=== PATIENT | male | born 1955 | race Two or more races ===

== ENCOUNTER 2022-10-14 17:16 | Inpatient (IN) | payer OTHER ==
[~2022-10-14] VITALS: Ht 167.6 cm; Wt 92.5 kg
--- NOTE | 2022-10-14 17:45 | NUR ---
PT [facility] FROM [facility], PER REPORT FROM FACILITY, PATIENT BEEN HAVING PROGRESSIVE WEEKNESS X 1 WEEK NOW AND TODAY WAS NOTED W/ LOW O2 SATURATION. PT VERBALLY RESPONSIVE. STATES "ANXIOUS" GOWNED AND PLACED ON MONITOR. AWAITING MD BAIG.
--- NOTE | 2022-10-14 17:56 | NUR ---
DR QUINTANA AT BEDSIDE FOR EVAL.
--- NOTE | 2022-10-14 18:03 | NUR ---
IV LINE STARTED BLOOD DRAWN AND SENT TO LAB
[2022-10-14 18:23] LABS: BASOPHILS % (AUTO) 0.3 % (0.0-2.0); EOSINOPHILS % (AUTO) 0.9 % (0.0-6.0); HEMATOCRIT 39 % (39-51); HEMOGLOBIN 12.2 g/dL (13.5-17.5); LYMPHOCYTES # (AUTO) 0.7 K/uL (0.8-4.8); LYMPHOCYTES % (AUTO) 10.5 % (20.0-44.0); MEAN CORPUSCULAR HGB CONC 32 g/dl (31.0-36.0); MEAN CORPUSCULAR VOLUME 92 fL (80-96); MONOCYTES # (AUTO) 0.7 K/uL (0.1-1.30); MONOCYTES % (AUTO) 11.5 % (2.0-12.0); NEUTROPHILS # (AUTO) 4.9 K/uL (1.8-8.9); NEUTROPHILS % (AUTO) 76.8 % (43.0-81.0); PLATELET COUNT (AUTO) 144 K/uL (150-450); RED BLOOD CELL COUNT(AUTO) 4.22 MIL/uL (4.5-6.0); WHITE BLOOD COUNT (AUTO) 6.3 K/uL (4.3-11.0)
[2022-10-14 19:00] LABS: ALANINE AMINOTRANSFERASE 40 U/L (12-78); ALBUMIN 3.3 g/dL (3.4-5.0); ALKALINE PHOSPHATASE 106 U/L (46-116); ASPARTATE AMINOTRANSFERASE 39 U/L (15-37); BILIRUBIN,DIRECT 0.4 mg/dL (0.0-0.2); BILIRUBIN,TOTAL 0.9 mg/dL (0.2-1.0); CALCIUM, SERUM 9.7 mg/dL (8.5-10.1); CHLORIDE 96 mmol/L (98-107); CREATININE 1.2 mg/dL (0.6-1.3); GLUCOSE 150 mg/dL (74-106); POTASSIUM 4.3 mmol/L (3.5-5.1); SODIUM SERUM 140 mmol/L (136-145); TOTAL PROTEIN, SERUM 6.6 g/dL (6.4-8.2); UREA NITROGEN, BLOOD 29 mg/dL (7-18)
[2022-10-14 19:17] LABS: CARBON DIOXIDE 46 mmol/L (21-32)
--- NOTE | 2022-10-14 19:17 | NUR ---
CO2 46
[2022-10-14] MEDS ORDERED: FUROSEMIDE 40 MG/4 ML VIAL ONE (19:57)
[2022-10-14] MEDS ORDERED: FUROSEMIDE 40 MG/4 ML VIAL IV ONE (20:00)
--- NOTE | 2022-10-14 20:03 | NUR ---
RT AT BEDSIDE FOR ABG
--- NOTE | 2022-10-14 20:10 | NUR ---
RT pt refused ABG. dr calabrese notified
--- NOTE | 2022-10-14 20:14 | NUR ---
COVID SWAB DONE
--- NOTE | 2022-10-14 20:27 | NUR ---
DR. ABEBE ON THE PHONE WITH DR. QUINTANA
--- NOTE | 2022-10-14 20:45 | NUR ---
RT pt placed on bipap post vbg results. settings ST 10/31 R18 36%. tolerating well. ambu bag at bedside.
--- NOTE | 2022-10-14 21:08 | NUR ---
VB COLLECTED AND SENT TO RT
--- NOTE | 2022-10-14 21:09 | NUR ---
LAB AT BEDSIDE FOR REPEAT TROPONIN
[2022-10-14 21:10] LABS: SITE, VBG Other; VBG MetHb 0.3 %; VENT MODE, VBG 5LNC
--- NOTE | 2022-10-14 21:20 | NUR ---
CALLED [facility]. AWAITING A CALL BACK FROM DR. ABEBE.
--- NOTE | 2022-10-14 21:23 | NUR ---
DR QUINTANA ON PHONE WITH DR GONSALEZ WITH [facility]
--- NOTE | 2022-10-14 21:40 | NUR ---
PT VOIDED 200 ML YELLOW FOUL SMELLING URINE
--- NOTE | 2022-10-14 21:54 | NUR ---
CALLED ICU FOR REPORT, REQUESTED FOR CALLBACK.
--- NOTE | 2022-10-14 22:05 | NUR ---
CALLED ICU AND SPOKE WITH LINDA KHAN ER REPORT GIVEN.
[2022-10-14] MEDS ORDERED: DEXTROSE 50%-WATER 50 ML DISP.SYRIN IV PRN (22:30)
[2022-10-14] MEDS ORDERED: methylPREDNISolone SOD SUCC 125 MG/2ML VIAL IV ONE (22:30)
[2022-10-14] MEDS ORDERED: Z GUARD REMEDY 4 OZ OINT TP PRN (22:30)
[2022-10-14] MEDS ORDERED: ONDANSETRON HCL/PF 4 MG/2 ML VIAL IVP PRN (22:30)
[2022-10-14] MEDS ORDERED: ACETAMINOPHEN 325 MG TABLET PO PRN (22:30)
[2022-10-14] MEDS ORDERED: ZOLPIDEM TARTRATE 5 MG TABLET PO PRN (22:30)
[2022-10-14] MEDS ORDERED: MAG HYDROX/AL HYDROX/SIMETH 30 ML UDC PO PRN (22:30)
[2022-10-14] MEDS ORDERED: MAGNESIUM HYDROXIDE 30 ML UDC PO PRN (22:30)
[2022-10-14] MEDS ORDERED: CEFEPIME 1 GM in IV D5W 50 ML IV SCH (22:36)
--- NOTE | 2022-10-14 22:49 | NUR ---
PT TRANSPORTED TO ICU RM 257 VIA ACLS PROTOCOL. PT REMAINED STABLE AND IN NO ACUTE RESPIRATORY DISTRESS. RECEIVED BY LINDA KHAN.
[2022-10-14 23:00] VITALS: BP 94/60
--- NOTE | 2022-10-14 23:00 | NUR ---
Received patient from ED AA/OX4.Dx: COPD and CHF Exacerbation.Situated to bed and made comfortable.Afib controlled. VSS.RT place patient on BIPAP 12/5,RATE 18,FIO2 36%.Saturation 90%-91%.No acute respiratory distress noted.Oriented to unit and Plan of care explained to patient verbalized understanding.Safety measures implemented.Bed alarm on and call light at bedside within easy reach.Continue monitoring.
[2022-10-14 23:03] VITALS: BP 94/60
[2022-10-14] MEDS ORDERED: MEROPENEM 1 G VIAL IV ONE (23:10)
[2022-10-14 23:16] LABS: ABG OXYGEN SATURATION 88.7 % (92.0-98.5); ABG PCO2 97.7 mmHg (35.0-45.0); ABG PO2 58.1 mmHg (75.0-100.0); AaDO2 85.3 mmHg; COHb 1.2 % (0.5-1.5); MetHb 0.2 % (0.0-1.5); O2Hb 87.5 % (94.0-97.0); SITE, ABG Left Radial
--- NOTE | 2022-10-14 23:17 | NUR ---
ABG DONE RN NOTIFIE
[2022-10-14] MEDS: IV NS 0.9% 250 ML IV PRN (23:19)
[2022-10-14 23:30] VITALS: BP 79/50
[2022-10-15] VITALS (31 sets, daily range): BP systolic 90–153; BP diastolic 20–79
--- NOTE | 2022-10-15 | NUR ---
ABG'S done at 2300 called to AMANUEL Robison no new orders received.Just keep the same bipap settings.
[2022-10-15] MEDS: ALBUTEROL FS 2.5 MG/3 ML VIAL.NEB NEB SCH ×4 (01:07→19:20)
[2022-10-15] MEDS ORDERED: IPRATROPIUM NEB FS 0.5 MG/2.5 ML AMPUL.NEB NEB ONE (01:30)
--- NOTE | 2022-10-15 04:00 | NUR ---
Patient getting agitated wants to get up.Assisted to bedside chair well tolerated.Stayed there x 2 hrs then back to bed.Refused AM CXR to be taken but sgreed to have am labs drawn.
[2022-10-15 04:49] LABS: BASOPHILS % (AUTO) 0.3 % (0.0-2.0); EOSINOPHILS % (AUTO) 0.9 % (0.0-6.0); HEMATOCRIT 39 % (39-51); HEMOGLOBIN 12.6 g/dL (13.5-17.5); LYMPHOCYTES # (AUTO) 0.9 K/uL (0.8-4.8); LYMPHOCYTES % (AUTO) 12.9 % (20.0-44.0); MEAN CORPUSCULAR HGB CONC 32 g/dl (31.0-36.0); MEAN CORPUSCULAR VOLUME 91 fL (80-96); MONOCYTES # (AUTO) 0.7 K/uL (0.1-1.30); MONOCYTES % (AUTO) 9.8 % (2.0-12.0); NEUTROPHILS # (AUTO) 5.3 K/uL (1.8-8.9); NEUTROPHILS % (AUTO) 76.1 % (43.0-81.0); PLATELET COUNT (AUTO) 137 K/uL (150-450); RED BLOOD CELL COUNT(AUTO) 4.27 MIL/uL (4.5-6.0)
[2022-10-15 05:09] LABS: ABG BASE EXCESS 14.8 mmol/L; ABG OXYGEN SATURATION 93.3 % (92.0-98.5); ABG PCO2 78.7 mmHg (35.0-45.0); ABG PH 7.364 (7.350-7.450); ABG PO2 68.7 mmHg (75.0-100.0); MetHb 0.2 % (0.0-1.5); O2Hb 92.2 % (94.0-97.0); SITE, ABG Left Radial
[2022-10-15 05:17] LABS: CALCIUM, SERUM 10.4 mg/dL (8.5-10.1); CREATININE 1.1 mg/dL (0.6-1.3); PHOSPHORUS 4.1 mg/dL (2.5-4.9); POTASSIUM 4.1 mmol/L (3.5-5.1)
[2022-10-15 05:21] LABS: THYROID STIMULATING HORMONE 2.442 uIU/mL (0.358-3.74)
--- NOTE | 2022-10-15 05:31 | NUR ---
@3280 [facility] DONE. CLAY BURNER NOTIFIED WITH THE RESULT
--- NOTE | 2022-10-15 06:40 | NUR ---
Patient resting vs remains stable.Tolerating Bipap.No acute repiratory distress noted. Afib controlled.Adequate urine output.No bm noted.Safety precaution maintained.
[2022-10-15] MEDS: methylPREDNISolone SOD SUCC 40 MG/ML VIAL IV SCH ×3 (07:13→20:25)
[2022-10-15] MEDS: BLOOD SUGAR DIAGNOSTIC 1 EACH STRIP IN SCH ×4 (07:26→21:04)
--- NOTE | 2022-10-15 07:47 | NUR ---
ICU/RN PT PLACED ON 4L O2 NC BY RT TONY. O2 SAT 91%. BLOOD SUGAR 54. PT EATING BREAKFAST AT THIS TIME.
[2022-10-15] MEDS: PANTOPRAZOLE 40 MG VIAL IV SCH (08:04)
[2022-10-15] MEDS: ASPIRIN 81 MG TAB.CHEW PO SCH (08:04)
--- NOTE | 2022-10-15 08:25 | NUR ---
ICU/RN NOTIFIED BY PHARMACY THAT STICK ROLLER CHARGE NURSE OVERRIDE MERREM LAST NIGHT. NO ORDER AVAILABLE FOR MERREM. MAXIPIME RECORDED TO HAVE BEEN ADMINISTERED AT 2316 IN [facility]. IVPB WITH ATTACHED VIAL IN PT'S ROOM. IVPB LABEL MADE BY STICK ROLLER STATES "MAXIPIME 1GM IN D5W 50ML [id number]". ATTACHED VIAL STATES "MEROPENEM FOR INJECTION, ASSISTED 1GM PER VIAL". PHARMACY NOTIFIED, ORDERED TO LEAVE IVPB WITH ATTACHED VIAL IN ROOM FOR NOW. CHARGE NURSE WANDA NOTIFIED.
[2022-10-15] MEDS ORDERED: FUROSEMIDE 40 MG/4 ML VIAL IV SCH (09:00)
[2022-10-15] MEDS ORDERED: METOPROLOL TARTRATE 25 MG TABLET PO SCH (09:00)
[2022-10-15] MEDS ORDERED: CEFEPIME 2 GM in IV D5W 100 ML IV ONE (10:00)
--- NOTE | 2022-10-15 11:26 | NUR ---
ICU/RN PT'S BROTHER BREANA [phone] UPDATED.
--- NOTE | 2022-10-15 11:26 | NUR ---
ICU/RN PT'S FACILITY [facility] [phone]
[2022-10-15] MEDS: INSULIN REGULAR, HUMAN 100 UNIT/ML 3 ML VIAL SQ PRN ×3 (12:04→21:06)
[2022-10-15] MEDS: DIGOXIN INJ 0.5 MG/2 ML AMPUL IV SCH ×3 (12:06→23:01)
[2022-10-15] MEDS: LORAZEPAM 1 MG TABLET PO PRN (14:09)
--- NOTE | 2022-10-15 14:15 | NUR ---
ICU/RN PT AGITATED, RESTLESS, REPORTING FEELING VERY ANXIOUS. DR. DANIEL NOTIFIED. ORDER RECEIVED FOR ATIVAN 0.5 Q6H PRN. ATIVAN GIVEN.
--- NOTE | 2022-10-15 15:09 | NUR ---
ICU/RN PT AGITATED DUE TO THE LAMA CATHETER. PT ATTEMPTING TO TAKE IT OUT. PT EDUCATED. FC REMOVED BY RN SAFELY. URINAL PLACED AT BEDSIDE.
[2022-10-15] MEDS: WARFARIN SODIUM 5 MG TABLET PO SCH (17:37)
--- NOTE | 2022-10-15 18:10 | NUR ---
ICU/RN PT PULLED OUT IV LINE ON LEFT HAND. ATTEMPTED TO PLACE NEW IV X2, UNSUCCESSFUL. CHARGE NURSE WANDA MADE AWARE. WILL ATTEMPT AGAIN AFTER PT EATS DINER.
--- NOTE | 2022-10-15 19:10 | NUR ---
METAL MODEL BUILDER DURING REPORT PT NOTED WITHOUT NIBP CUFF OR O2 SENSOR; REAPPLIED AND EDUCATED PT ON NEED FOR CONTINUOUS MONITORING. PT VERBALIZED UNDERSTANDING.
--- NOTE | 2022-10-15 19:10 | NUR ---
SENIOR PRODUCER CALLED RT FOR BREATHING TREATMENT SATURATION 68-71%
--- NOTE | 2022-10-15 19:14 | NUR ---
PANTS PRESSER AUTOMATIC PT PLACED ON BIPAP BY RT 10/31 18 40% FOR DESATURATION
--- NOTE | 2022-10-15 19:18 | NUR ---
MIGRATORY FARM HAND FIO2 INCREASED TO 60% FOR DESATURATION
[2022-10-15] MEDS: CEFEPIME 2 GM in IV D5W 100 ML IV SCH (20:25)
--- NOTE | 2022-10-15 22:27 | NUR ---
BEER MAKER PER PROTOCOL DAILY PT/INR WHILE PT ON COUMADIN; ORDER PLACED
--- NOTE | 2022-10-15 22:29 | NUR ---
DECORATIVE CUTTING MACHINE TENDER NOTED ORDER FOR UA FROM LAST NIGHT; URINE COLLECTED AND SENT TO LAB
--- NOTE | 2022-10-15 23:45 | NUR ---
RESERVATION CLERK PT REMOVED BIPAP AND GOT OUT OF BED COMPLAINING OF CRAMP TO RIGHT FOOT; PT PLACED ON 4 L NC AND ASSISTED TO CHAIR. PT VERBALIZED FEELINGS OF ANXIETY. STATES HE HAS SUFFERED FROM ANXIETY FOR MANY YEARS.
[2022-10-16] VITALS (21 sets, daily range): BP systolic 78–137; BP diastolic 23–108
--- NOTE | 2022-10-16 00:20 | NUR ---
COMMERCIAL REAL ESTATE SALES MANAGER PT C/O FEELING DIZZY, PER PT HE DOES NOT FEEL LIKE HIS USUAL SELF. REMAINS ON CHAIR. VSS. GLUCOSE 196.
--- NOTE | 2022-10-16 00:44 | NUR ---
MEDICAL CLERK PT ASSISTED BACK TO BED AND PLACED BACK ON BIPAP WITH PREVIOUS SETTINGS
[2022-10-16] MEDS: ALBUTEROL FS 2.5 MG/3 ML VIAL.NEB NEB SCH ×4 (02:02→20:14)
--- NOTE | 2022-10-16 03:20 | NUR ---
FORENSIC IDENTIFICATION SPECIALIST APPLIED SCDS AT THIS TIME
--- NOTE | 2022-10-16 04:43 | NUR ---
ROTATING FIELD ASSEMBLER THIRD REMINDER TO LAB TO DATA SUPPORT SPECIALIST URINE SPECIMEN
[2022-10-16] MEDS: methylPREDNISolone SOD SUCC 40 MG/ML VIAL IV SCH ×2 (05:05→21:00)
--- NOTE | 2022-10-16 05:37 | NUR ---
BRANDS EDITOR PER GASTROENTEROLOGY MANAGER SHE WAS UNABLE TO DRAW PT AND WILL SEND SOMEONE FROM NEXT SHIFT; URINE SPECIMEN PICKED UP
[2022-10-16 05:48] LABS: BILIRUBIN,URINE 1+ (NEGATIVE); COLOR,URINE YELLOW (YELLOW); LEUKOCYTE ESTERASE ,URINE NEGATIVE (NEGATIVE); NITRITE, URINE NEGATIVE (NEGATIVE); PROTEIN,URINE 1+ mg/dl (NEGATIVE); UGLUCOSE TRACE mg/dL (NEGATIVE); UROBILINOGEN,URINE 0.2 EU/dL (0.2)
[2022-10-16 06:38] LABS: BACTERIA,URINE 3+ /HPF (None Seen); CALCIUM OXALATE CRYSTALS,UR Few /HPF (None Seen); RBC,URINE TOO NUMEROUS TO COUN /HPF (0-2)
--- NOTE | 2022-10-16 07:30 | NUR ---
OPENING NOTE: REPORT RECEIVED FROM MARTIN MCKEON. ORDERS REVIEWED DURING REPORT. PER REPORT LAB IS DUE TO COME DRAW BLOOD FROM PATIENT FOR AM LABS, NOT DONE OF THIS TIME. PT IS AWAKE AND HAS BEEN TAKEN OFF BIPAP ALREADY THIS AM. PT CHECKED ON HOURLY AND PRN BY NURSING STAFF.
[2022-10-16] MEDS: BLOOD SUGAR DIAGNOSTIC 1 EACH STRIP IN SCH ×4 (07:39→21:01)
[2022-10-16] MEDS: INSULIN REGULAR, HUMAN 100 UNIT/ML 3 ML VIAL SQ PRN ×2 (07:45→11:38)
[2022-10-16] MEDS: LORAZEPAM 1 MG TABLET PO PRN ×2 (08:34→15:50)
[2022-10-16] MEDS: CEFEPIME 2 GM in IV D5W 100 ML IV SCH ×2 (08:34→21:00)
[2022-10-16] MEDS: ASPIRIN 81 MG TAB.CHEW PO SCH (08:34)
[2022-10-16] MEDS: PANTOPRAZOLE 40 MG VIAL IV SCH (08:34)
[2022-10-16] MEDS ORDERED: BUPR-54 PO (09:08)
[2022-10-16] MEDS ORDERED: ATOR10TA PO (09:08)
[2022-10-16] MEDS ORDERED: SPIR25TA6 PO (09:08)
[2022-10-16] MEDS ORDERED: COLC0.6T67 PO (09:08)
[2022-10-16] MEDS ORDERED: FLUO20CA42 PO (09:08)
[2022-10-16] MEDS ORDERED: WARF-58 PO (09:08)
[2022-10-16] MEDS ORDERED: CARV3.122 PO (09:08)
[2022-10-16] MEDS ORDERED: DIGO125T PO (09:08)
[2022-10-16] MEDS ORDERED: GLIP5TAB13 PO (09:08)
[2022-10-16] MEDS ORDERED: LISI2.5T2 PO (09:08)
[2022-10-16] MEDS ORDERED: FURO40TA5 PO (09:08)
[2022-10-16] MEDS ORDERED: POTA10TA10 PO (09:08)
[2022-10-16 09:33] LABS: BASOPHILS % (AUTO) 0.6 % (0.0-2.0); EOSINOPHILS % (AUTO) 0.1 % (0.0-6.0); HEMATOCRIT 36 % (39-51); HEMOGLOBIN 11.6 g/dL (13.5-17.5); LYMPHOCYTES # (AUTO) 0.3 K/uL (0.8-4.8); LYMPHOCYTES % (AUTO) 3.9 % (20.0-44.0); MEAN CORPUSCULAR HGB CONC 32 g/dl (31.0-36.0); MEAN CORPUSCULAR VOLUME 92 fL (80-96); MONOCYTES # (AUTO) 0.3 K/uL (0.1-1.30); MONOCYTES % (AUTO) 3.5 % (2.0-12.0); NEUTROPHILS # (AUTO) 6.5 K/uL (1.8-8.9); NEUTROPHILS % (AUTO) 91.9 % (43.0-81.0); PLATELET COUNT (AUTO) 120 K/uL (150-450); RED BLOOD CELL COUNT(AUTO) 3.92 MIL/uL (4.5-6.0); WHITE BLOOD COUNT (AUTO) 7.1 K/uL (4.3-11.0)
[2022-10-16] MEDS: FUROSEMIDE 40 MG/4 ML VIAL IV SCH ×3 (09:42→17:08)
[2022-10-16 10:35] LABS: ALANINE AMINOTRANSFERASE 30 U/L (12-78); ALBUMIN 2.8 g/dL (3.4-5.0); ALKALINE PHOSPHATASE 71 U/L (46-116); ASPARTATE AMINOTRANSFERASE 30 U/L (15-37); BILIRUBIN,TOTAL 0.8 mg/dL (0.2-1.0); CALCIUM, SERUM 9.3 mg/dL (8.5-10.1); GLUCOSE 197 mg/dL (74-106); PHOSPHORUS 3.2 mg/dL (2.5-4.9); POTASSIUM 4.5 mmol/L (3.5-5.1); SODIUM SERUM 142 mmol/L (136-145); TOTAL PROTEIN, SERUM 5.9 g/dL (6.4-8.2); UREA NITROGEN, BLOOD 26 mg/dL (7-18)
[2022-10-16 10:44] LABS: CARBON DIOXIDE 44 mmol/L (21-32)
[2022-10-16] MEDS: DIGOXIN 0.25 MG TABLET PO SCH (13:16)
[2022-10-16] MEDS: WARFARIN SODIUM 5 MG TABLET PO SCH (17:05)
--- NOTE | 2022-10-16 17:54 | NUR ---
PT TRANSFERRED VIA BED USING ACLS PROTOCOL TO ROOM 104. BEDSIDE REPORT GIVEN TO LEON MCKEON. PT SETTLED IN ROOM.
--- NOTE | 2022-10-16 17:57 | NUR ---
LYNN RN NOTE RECEIVED PATIENT FROM ICU ALERT ORIENTED, PLACED ON TELE MONITOR AFIB HR 86 , ON 4L NC NO SOB NOTED AT THIS TIME , RT FA HL INTACT AND FLUSHED WELL , BED IN LOWEST AND LOCKED POSITION , SAFETY MEASURE PROVIDED CALL LIGHT WITHIN REACH WILL CONT TO MONITOR
[2022-10-16] MEDS: IV NS 0.9% 250 ML IV PRN (21:00)
--- NOTE | 2022-10-16 22:15 | NUR ---
TD RN PT PLACED ON BIPAP BY RT RATE 12 10/31 50%
--- NOTE | 2022-10-16 22:16 | NUR ---
AUTOMATIC GLUING MACHINE OPERATOR PT WITH 7 BEATS OF NON SUSTAINED VTACH AT 2141; NOTIFIED AMANUEL GILBERT
[2022-10-16] MEDS ORDERED: Magnesium 1GM/D5W 100ML PREMIX PIGGYBACK IV ONE (22:30)
[2022-10-16] MEDS ORDERED: Magnesium 1GM/D5W 100ML PREMIX 100 ML IV ONE (23:00)
[2022-10-17] VITALS (15 sets, daily range): BP systolic 99–150; BP diastolic 48–124
[2022-10-17] MEDS: ALBUTEROL FS 2.5 MG/3 ML VIAL.NEB NEB SCH ×4 (02:16→20:18)
[2022-10-17 06:24] LABS: ABG BASE EXCESS 20.2 mmol/L; ABG PCO2 92.1 mmHg (35.0-45.0); ABG PH 7.358 (7.350-7.450); ABG PO2 93.6 mmHg (75.0-100.0); AaDO2 159.3 mmHg; COHb 0.7 % (0.5-1.5); MetHb 0.2 % (0.0-1.5); O2Hb 96.1 % (94.0-97.0); SITE, ABG Left Radial
--- NOTE | 2022-10-17 07:10 | NUR ---
LYNN RN notes Received patient in bed, alert without active complaint. Telemetry showed AF with HR 104/min. He is on 4L oxygen via NC, no SOB noted. Call virgen is placed within reach. Bed is locked and placed in lowest position. All safety measures are implemented. Will continue to monitor.
[2022-10-17 07:21] LABS: BASOPHILS % (AUTO) 0.4 % (0.0-2.0); EOSINOPHILS % (AUTO) 0.1 % (0.0-6.0); HEMATOCRIT 38 % (39-51); HEMOGLOBIN 12.3 g/dL (13.5-17.5); LYMPHOCYTES # (AUTO) 0.3 K/uL (0.8-4.8); LYMPHOCYTES % (AUTO) 3.6 % (20.0-44.0); MEAN CORPUSCULAR HGB CONC 33 g/dl (31.0-36.0); MEAN CORPUSCULAR VOLUME 92 fL (80-96); MONOCYTES # (AUTO) 0.3 K/uL (0.1-1.30); MONOCYTES % (AUTO) 3.1 % (2.0-12.0); NEUTROPHILS # (AUTO) 8.3 K/uL (1.8-8.9); NEUTROPHILS % (AUTO) 92.8 % (43.0-81.0); PLATELET COUNT (AUTO) 119 K/uL (150-450); RED BLOOD CELL COUNT(AUTO) 4.11 MIL/uL (4.5-6.0)
[2022-10-17 07:24] LABS: CALCIUM, SERUM 9.3 mg/dL (8.5-10.1); CREATININE 0.8 mg/dL (0.6-1.3); PHOSPHORUS 3.3 mg/dL (2.5-4.9); POTASSIUM 4.6 mmol/L (3.5-5.1)
[2022-10-17] MEDS: BLOOD SUGAR DIAGNOSTIC 1 EACH STRIP IN SCH ×4 (07:39→22:23)
[2022-10-17] MEDS: INSULIN REGULAR, HUMAN 100 UNIT/ML 3 ML VIAL SQ PRN ×4 (07:42→22:24)
[2022-10-17] MEDS: methylPREDNISolone SOD SUCC 40 MG/ML VIAL IV SCH ×2 (08:09→20:36)
[2022-10-17] MEDS: CEFEPIME 2 GM in IV D5W 100 ML IV SCH ×2 (08:10→20:36)
[2022-10-17] MEDS: PANTOPRAZOLE 40 MG TABLET.DR PO SCH (08:10)
[2022-10-17] MEDS: ASPIRIN 81 MG TAB.CHEW PO SCH (08:10)
[2022-10-17 08:12] LABS: ALBUMIN 3.1 g/dL (3.4-5.0); BILIRUBIN,TOTAL 0.7 mg/dL (0.2-1.0); TOTAL PROTEIN, SERUM 6.4 g/dL (6.4-8.2)
--- NOTE | 2022-10-17 08:30 | NUR ---
LYNN RN notes Escorted patient to the bathroom, mild SOB noted but lessened after sitting down. Voided yellow and clear fluid. No SOB after sitting him out at the edge of bed. Will monitor.
[2022-10-17 08:43] LABS: MAGNESIUM 2.4 mg/dL (1.8-2.4)
[2022-10-17] MEDS: DIGOXIN 0.25 MG TABLET PO SCH (12:11)
--- NOTE | 2022-10-17 14:19 | NUR ---
LYNN RN notes Noted patient becoming more confused at noon. He tried to climb out of bed several times despite attending to all his needs at the time. Upon asking, he is confused to time and place. BP 131/57mmHg, HR 75/min. SpO2 88-92% with 4L oxygen via NC, RR 25/min. Informed Doctor, who said to put on Bipap and perform an ABG. Informed RT and they came in 1 minute.
[2022-10-17 14:27] LABS: ABG BASE EXCESS 18.4 mmol/L; ABG OXYGEN SATURATION 97.8 % (92.0-98.5); ABG PCO2 102.8 mmHg (35.0-45.0); ABG PH 7.306 (7.350-7.450); ABG PO2 109.2 mmHg (75.0-100.0); AaDO2 35.6 mmHg; COHb 0.7 % (0.5-1.5); MetHb 0.2 % (0.0-1.5); O2Hb 96.9 % (94.0-97.0)
--- NOTE | 2022-10-17 14:35 | NUR ---
RN NOTES RECEIVED PT ON ROOM 258, A/Ox3-4, FOLLOWS COMMAND , SOB NOTED, PLACED ON BIPAP, ON TELE A.FIB HR IN LOW 100'S, IV SITE CDI, SR UP X3, CALL LIGHT WITHIN EASY REACH, BED LOCKED AND IN LOWEST POSITION, CONTINUE TO MONITOR
--- NOTE | 2022-10-17 14:47 | NUR ---
LYNN RN notes <Retrospective> Received an order from , to transfer to ICU for BIPAP. Spo2 95% with FiO2 50% via BiPAP. Transfered to 4L oxygen via NC for transport, Spo2 94%, RR 20/min. BP was 125/61mmHg. monitoring manager showed AF with HR 75/min. Belongings are checked and documented. Handover was given to ICU nurse at 14:30.
[2022-10-17 16:22] LABS: ABG BASE EXCESS 21.6 mmol/L; ABG OXYGEN SATURATION 90.2 % (92.0-98.5); ABG PCO2 94.5 mmHg (35.0-45.0); ABG PO2 57.5 mmHg (75.0-100.0); COHb 0.5 % (0.5-1.5); MetHb 0.3 % (0.0-1.5); O2Hb 89.5 % (94.0-97.0); SITE, ABG Left Radial; VENT MODE, BG BIPAP 18/5 R20 40%
[2022-10-17] MEDS: WARFARIN SODIUM 5 MG TABLET PO SCH (16:26)
[2022-10-17] MEDS ORDERED: acetaZOLAMIDE SODIUM 500 MG/VIAL VIAL IV ONE (17:00)
--- NOTE | 2022-10-17 18:30 | NUR ---
RN NOTES PT CONFUSED AT THIS , PULLED ON HIS IV , TRY TO GET OUT OF THE BED, VERY WEAK , ON 2 TO 3L O2 N/C , O2 SAT IN 88-93%, BM x1, SR UP x3 CALL LIGHT WITHIN EASY REACH, BED LOCKED AND IN LOWEST POSITION, WILL ENDORSE TO SILVER WRAPPER NURSE FOR CONTINUITY OF CARE
--- NOTE | 2022-10-17 19:10 | NUR ---
RN OPENING NOTES RECEIVED PATIENT ON BED AWAKE, A/O X 3 WITH PERIOD OF CONFUSION, AGITATED, ON NASAL CANULA @ 4LPM, SATING AT 93%. RESPIRATORY EVEN AND UNLABORED, NO SOB NOTED. NO S/S OF DISTRESS NOTED. AFEBRILE. NO IV LINE NOTED, PER MORNING SHIFT NURSE PATIENT PULLED IT OUT. NOTED WITH BILATERAL SOFT WRIST RESTRAINT, RELEASE AND REASSESS Q 2HRS FOR CIRCULATION. ALL SAFETY PRECAUTION PROVIDED. BED IN LOWEST POSITION, LOCKED. CALL LIGHT WITH IN REACH. CONTINUE TO MONITOR
[2022-10-17] MEDS: IV NS 0.9% 250 ML IV PRN (20:40)
--- NOTE | 2022-10-17 22:24 | NUR ---
RN NOTES BLOOD SUGAR 113 mg/dL, NO INSULIN COVERAGE PER SLIDING SCALE, NO S/S OF HYPOGLYCEMIA NOTED, CONTINUE TO MONITOR.
--- NOTE | 2022-10-17 23:20 | NUR ---
RN NOTES ON MONITOR, PATIENT IS AFIB, HEART RATE ON LOW 40'S, CHARGE NURSE WENT AND CHECKED THE PATIENT. PATIENT FOUND UNRESPONSIVE, SKIN COLD AND CLAMMY, PULSE IS PALPABLE. RT. CALLED STILL UNRESPONSIVE, CHECKED BLOOD SUGAR 171 mg/dL. WITH CONTINUOS STIMULATION, PATIENT WOKE UP. LEGAL BILLING SPECIALIST NIMESH GILBERT AT BEDSIDE TO EVALUATE THE PATIENT. NO NEW ORDER AT THIS TIME. CONTINUE TO MONITOR.
[2022-10-18] VITALS (42 sets, daily range): BP systolic 80–151; BP diastolic 43–94
[2022-10-18] MEDS: ALBUTEROL FS 2.5 MG/3 ML VIAL.NEB NEB SCH ×4 (01:45→19:26)
[2022-10-18 04:32] LABS: HEMATOCRIT 38 % (39-51); HEMOGLOBIN 12.1 g/dL (13.5-17.5); LYMPHOCYTES # (AUTO) 0.3 K/uL (0.8-4.8); LYMPHOCYTES % (AUTO) 3.2 % (20.0-44.0); MEAN CORPUSCULAR HGB CONC 32 g/dl (31.0-36.0); MEAN CORPUSCULAR VOLUME 92 fL (80-96); MONOCYTES # (AUTO) 0.5 K/uL (0.1-1.30); NEUTROPHILS # (AUTO) 8.2 K/uL (1.8-8.9); NEUTROPHILS % (AUTO) 91.8 % (43.0-81.0); PLATELET COUNT (AUTO) 119 K/uL (150-450); WHITE BLOOD COUNT (AUTO) 8.9 K/uL (4.3-11.0)
[2022-10-18 04:46] LABS: CALCIUM, SERUM 9.6 mg/dL (8.5-10.1); MAGNESIUM 2.5 mg/dL (1.8-2.4); PHOSPHORUS 2.9 mg/dL (2.5-4.9); POTASSIUM 4.5 mmol/L (3.5-5.1)
[2022-10-18 05:09] LABS: ABG BASE EXCESS 20.6 mmol/L; ABG OXYGEN SATURATION 92.6 % (92.0-98.5); ABG PCO2 81.7 mmHg (35.0-45.0); ABG PH 7.404 (7.350-7.450); ABG PO2 62.9 mmHg (75.0-100.0); AaDO2 91.7 mmHg; MetHb 0.2 % (0.0-1.5); O2Hb 91.5 % (94.0-97.0); SITE, ABG Right Radial; VENT MODE, BG ST 18/5 RR20 35%
--- NOTE | 2022-10-18 05:14 | NUR ---
RN NOTES RECEIVED LATEST ABG RESULT, NOTIFIED DIAMOND SORTER NIMESH GILBERT, NO NEW ORDER AT THIS TIME.
[2022-10-18] MEDS: BLOOD SUGAR DIAGNOSTIC 1 EACH STRIP IN SCH ×4 (07:53→22:20)
--- NOTE | 2022-10-18 08:00 | NUR ---
RN NOTES RECEIVED PATIENT IN THE BED RT WITH THE PATIENT GIVING BREATHING TREATMENT, AND REMOVED BIPAP AT THIS TIME. PATIENT O2-2LNC, PATIENT A/OX3 WITH CONFUSION. NO ACUTE RESPIRATORY DISTRESS, FIO2-91%, PER Dr JOHNSON 88%-TO 89% OK, BECAUSE OF COPD, AND CHF. DUE MEDICATION ADMINISTERED. PATIENT USING URINAL. PATIENT HAS SOME ANXIETY, KEEP TRYING TO GET OUT OF BED, MOVING ALL WIRES, AND NEED CONSTANT REDIRECTION. CALL LIGHT WITHIN TO REACH. WILL FOLLOW UP, BED ALARM ON.
[2022-10-18] MEDS: methylPREDNISolone SOD SUCC 40 MG/ML VIAL IV SCH ×2 (08:16→20:49)
[2022-10-18] MEDS: ASPIRIN 81 MG TAB.CHEW PO SCH (08:16)
[2022-10-18] MEDS: PANTOPRAZOLE 40 MG TABLET.DR PO SCH (08:16)
[2022-10-18] MEDS: CEFEPIME 2 GM in IV D5W 100 ML IV SCH ×2 (08:17→20:49)
[2022-10-18 08:18] LABS: ABG BASE EXCESS 20.3 mmol/L; ABG OXYGEN SATURATION 88.3 % (92.0-98.5); ABG PCO2 88.4 mmHg (35.0-45.0); ABG PH 7.374 (7.350-7.450); ABG PO2 54.3 mmHg (75.0-100.0); MetHb 0.2 % (0.0-1.5); O2Hb 87.2 % (94.0-97.0); SITE, ABG Left Radial
[2022-10-18] MEDS: INSULIN REGULAR, HUMAN 100 UNIT/ML 3 ML VIAL SQ PRN ×3 (08:23→22:22)
--- NOTE | 2022-10-18 12:00 | NUR ---
RN NOTES BS-94MG/DL, PATIENT TOLERATED LUNCH WELL, DUE MEDICATION ADMINISTERED.
[2022-10-18] MEDS: DIGOXIN 0.25 MG TABLET PO SCH (12:14)
--- NOTE | 2022-10-18 13:30 | NUR ---
RN NOTES SEEN PATIENT VIA PSYCHIATRIST Dr IZQUIERDO , PATIENT GET ZYPREXA 5 MG PO BID. PATIENT IN THE BED A/OX2 AT THIS TIME, CONFUSED. WILL FOLLOW UP.
[2022-10-18 14:24] LABS: ABG BASE EXCESS 13.7 mmol/L; ABG OXYGEN SATURATION 96.3 % (92.0-98.5); ABG PCO2 91.4 mmHg (35.0-45.0); ABG PH 7.305 (7.350-7.450); ABG PO2 87.6 mmHg (75.0-100.0); AaDO2 166.1 mmHg; COHb 1.1 % (0.5-1.5); MetHb 0.2 % (0.0-1.5); SITE, ABG Right Radial
[2022-10-18] MEDS: OLANZAPINE ZYDIS 5 MG TAB.RAPDIS PO SCH ×2 (14:42→18:21)
--- NOTE | 2022-10-18 16:00 | NUR ---
RN NOTES PUT PATIENT BACK TO THE BIPAP AT THIS TIME BECAUSE OF RESTLESS, O2- 77%, SETTING IS 18/5, AC- 20, FIO2- 35%. BP-92/58, P-94.
--- NOTE | 2022-10-18 17:27 | NUR ---
RT PATIENT BECAME LETHARGIC AND WAS PLACED BACK ON BIPAP MACHINE. Addendum: 10/18/22 at 1728 by CALVIN VASQUEZ RT Amended: Links added.
--- NOTE | 2022-10-18 18:30 | NUR ---
rn notes patient up at this time removed Bipap, due medication administered, patient tolerated dinner 75% self. patient confused, get imitable easily. bed alarm on, side rails up x3. endorsed oncoming nurse tai.
[2022-10-18] MEDS: WARFARIN SODIUM 5 MG TABLET PO SCH (18:43)
--- NOTE | 2022-10-18 19:15 | NUR ---
RN OPENING NOTES RECEIVED PATIENT ON BED AWAKE, A/O X 3 WITH PERIOD OF CONFUSION, AGITATED, ON NASAL CANULA @ 2 LPM, SATING AT 91%. RESPIRATORY EVEN AND UNLABORED, NO SOB NOTED. NO S/S OF DISTRESS NOTED. AFEBRILE. NOTED WITH RIGHT HAND #22 PERIPHERAL LINE, PATENT INTACT, FLUSHED WITH NS. ALL SAFETY PRECAUTION PROVIDED. BED IN LOWEST POSITION, LOCKED. BED ALARM ARMED. CALL LIGHT WITH IN REACH. CONTINUE TO MONITOR
--- NOTE | 2022-10-18 19:29 | NUR ---
RT Pt recvd awake and verbal, on 2 lpm NC, no SOB or respiratory distress noted at this time. Neb tx given and pt robby well.
--- NOTE | 2022-10-18 23:40 | NUR ---
RN NOTES REPORT GIVEN TO LINDA RANKIN FOR CONTINUITY OF CARE.
--- NOTE | 2022-10-18 23:45 | NUR ---
GRAPHIC EDITOR NOTE ASSUMED CARE FOR THE PT, REPORT RECEIVED FROM LACY. PT IN BED ON BIPAP. ASLEEP, AROUSABLE. INCONTNENCE CARE GIVEN. ALL NEED ATTENDED. KEPT HIM DRY AND CLEAN. CONTINUE TO MONITOR HIM.
[2022-10-19] VITALS (31 sets, daily range): BP systolic 81–129; BP diastolic 32–95
[2022-10-19] MEDS: ALBUTEROL FS 2.5 MG/3 ML VIAL.NEB NEB SCH ×4 (01:35→19:33)
[2022-10-19 05:13] LABS: BASOPHILS % (AUTO) 0.1 % (0.0-2.0); HEMATOCRIT 39 % (39-51); HEMOGLOBIN 12.4 g/dL (13.5-17.5); LYMPHOCYTES # (AUTO) 0.5 K/uL (0.8-4.8); LYMPHOCYTES % (AUTO) 6.1 % (20.0-44.0); MEAN CORPUSCULAR HGB CONC 32 g/dl (31.0-36.0); MEAN CORPUSCULAR VOLUME 92 fL (80-96); MONOCYTES # (AUTO) 0.3 K/uL (0.1-1.30); NEUTROPHILS # (AUTO) 6.6 K/uL (1.8-8.9); NEUTROPHILS % (AUTO) 89.8 % (43.0-81.0); PLATELET COUNT (AUTO) 121 K/uL (150-450); RED BLOOD CELL COUNT(AUTO) 4.22 MIL/uL (4.5-6.0); WHITE BLOOD COUNT (AUTO) 7.4 K/uL (4.3-11.0)
[2022-10-19 05:18] LABS: CALCIUM, SERUM 9.7 mg/dL (8.5-10.1); MAGNESIUM 2.4 mg/dL (1.8-2.4); PHOSPHORUS 2.5 mg/dL (2.5-4.9); POTASSIUM 4.7 mmol/L (3.5-5.1)
--- NOTE | 2022-10-19 06:51 | NUR ---
HOOP MAKER MACHINE NOTE PT IN BED ASLEEP, REMAIN ON BIPAP. NO DISTRESS OR DISCOMFORT NOTED. DENIES PAIN. ON TELE A FIB CONTROLLED 70. ALL NEEDS ATTENDED. SIDE RAILS UP X 3 AND CALL LIGHT WITHIN REACH. WILL ENDORSE TO DAY SHIFT NURSE FOR CONTINUE TO CARE.
--- NOTE | 2022-10-19 07:50 | NUR ---
PT. IS AWAKE AND FOLLOW COMMANDS PLACED INTO NASAL CANNULA @ 2LPM O2 FLOW. BIPAP ON STAND BY MODE @ BEDSIDE. WILL TITRATE SPO2 GREATER THAN OR EQUAL TO 88% PER DR. JOHNSON Addendum: 10/19/22 at 0752 by ALPESH NAVARRETE RT Amended: Links added.
[2022-10-19] MEDS: BLOOD SUGAR DIAGNOSTIC 1 EACH STRIP IN SCH ×4 (07:55→21:11)
[2022-10-19] MEDS: ASPIRIN 81 MG TAB.CHEW PO SCH (08:41)
[2022-10-19] MEDS: CEFEPIME 2 GM in IV D5W 100 ML IV SCH ×2 (08:41→21:13)
[2022-10-19] MEDS: methylPREDNISolone SOD SUCC 40 MG/ML VIAL IV SCH ×2 (08:41→21:13)
[2022-10-19] MEDS: PANTOPRAZOLE 40 MG TABLET.DR PO SCH (08:42)
[2022-10-19] MEDS: OLANZAPINE ZYDIS 5 MG TAB.RAPDIS PO SCH ×2 (08:42→16:48)
[2022-10-19] MEDS ORDERED: acetaZOLAMIDE SODIUM 500 MG/VIAL VIAL IV ONE (09:00)
[2022-10-19 11:58] LABS: ABG BASE EXCESS 15.9 mmol/L; ABG OXYGEN SATURATION 88.4 % (92.0-98.5); ABG PCO2 71.6 mmHg (35.0-45.0); ABG PH 7.408 (7.350-7.450); ABG PO2 50.1 mmHg (75.0-100.0); AaDO2 65.1 mmHg; COHb 1.6 % (0.5-1.5); MetHb 0.1 % (0.0-1.5); O2Hb 86.9 % (94.0-97.0); SITE, ABG Right Brachial; VENT MODE, BG nasal cannula
[2022-10-19] MEDS: DIGOXIN 0.25 MG TABLET PO SCH (12:28)
[2022-10-19] MEDS: INSULIN REGULAR, HUMAN 100 UNIT/ML 3 ML VIAL SQ PRN ×2 (12:29→16:51)
--- NOTE | 2022-10-19 12:30 | NUR ---
RN NOTES BS-136MG/DL COVERAGE GIVEN , DUE MEDICATION ADMINISTERED. PATIENT TOLERATED LUNCH 60% SELF. GET CALL FROM PATIENT'S BROTHER NAME ANTHONY PHONE # [phone] , PER BROTHER WANTED TO SPEAK TO THE CASE MANAGEMENT ABOUT PLAN OF CARE.
--- NOTE | 2022-10-19 16:37 | NUR ---
rn notes get call from [facility] RN name AARON phone # [phone]. Getting patient last update to transfer patient , per RN working available bed.
[2022-10-19] MEDS: WARFARIN SODIUM 5 MG TABLET PO SCH (16:49)
--- NOTE | 2022-10-19 17:52 | NUR ---
RN NOTES ADMINISTERED MILK OF MAGNESIA 30ML FOR CONSTIPATION PER PATIENT REQUEST.
--- NOTE | 2022-10-19 18:30 | NUR ---
rn notes PM CARE DONE, DUE MEDICATION ADMINISTERED, BS-204 MG/DL COVERAGE GIVEN, PATIENT TOLERATED DINNER 100% SELF. PATIENT HIGH FALL RISK, O2-2LNC, NEED CONSTANT REDIRECTION. PATIENT HAS 1500 ML OF RESTRICTION OF WATER WITHIN 24HR. CALL LIGHT WITHIN T REACH. PATIENT TUTN ANDREPOSTION SELF IN THE BED. ENDORSED ONCOMING NURSE FOLLOW PLAN OF CARE.
--- NOTE | 2022-10-19 19:43 | NUR ---
PT PLACED ON NOC BIPAP.
--- NOTE | 2022-10-19 20:45 | NUR ---
ICU/RN: TRANSFER INFORMATION RECEIVED FOR PT TRANSFER TO [facility]. SPOKE WITH ADRIANA [phone] AT THE [facility]. BUT PER DR. JOHNSON ONLY OK TO TRANSFER IF PT IS OFF OF BIPAP. NEW ORDER TO TAKE PT OFF BIPAP AND DO ABG IN 45MINS TO DETERMINE STABILITY FOR TRANSPORT. WILL CONTINUE PLAN OF CARE.
--- NOTE | 2022-10-19 20:48 | NUR ---
PATIENT TAKEN OFF BIPAP PER PELEG AND ABG IN 45 MINUTES. PT PLACED ON 2L NC.
--- NOTE | 2022-10-19 20:59 | NUR ---
ICU/RN: PER DR. DANIEL DO NOT TRANSFER PT TONIGHT. SPOKE WITH ADRIANA [phone] AT [facility]. WILL CANCEL TRANSFER TONIGHT AND FOLLOW UP IN AM.
--- NOTE | 2022-10-19 21:07 | NUR ---
PT PLACED BACK ON BIPAP
[2022-10-20] VITALS (24 sets, daily range): BP systolic 81–136; BP diastolic 30–78
[2022-10-20] MEDS: ALBUTEROL FS 2.5 MG/3 ML VIAL.NEB NEB SCH ×4 (01:25→19:55)
[2022-10-20 03:48] LABS: BASOPHILS % (AUTO) 0.1 % (0.0-2.0); EOSINOPHILS % (AUTO) 0.3 % (0.0-6.0); HEMATOCRIT 37 % (39-51); LYMPHOCYTES # (AUTO) 0.4 K/uL (0.8-4.8); LYMPHOCYTES % (AUTO) 6.1 % (20.0-44.0); MEAN CORPUSCULAR HGB CONC 32 g/dl (31.0-36.0); MEAN CORPUSCULAR VOLUME 93 fL (80-96); MONOCYTES # (AUTO) 0.2 K/uL (0.1-1.30); MONOCYTES % (AUTO) 3.1 % (2.0-12.0); NEUTROPHILS # (AUTO) 6.4 K/uL (1.8-8.9); NEUTROPHILS % (AUTO) 90.4 % (43.0-81.0); PLATELET COUNT (AUTO) 133 K/uL (150-450); RED BLOOD CELL COUNT(AUTO) 4.02 MIL/uL (4.5-6.0); WHITE BLOOD COUNT (AUTO) 7.1 K/uL (4.3-11.0)
[2022-10-20 04:15] LABS: CALCIUM, SERUM 9.6 mg/dL (8.5-10.1); CREATININE 0.9 mg/dL (0.6-1.3); MAGNESIUM 2.7 mg/dL (1.8-2.4); PHOSPHORUS 2.3 mg/dL (2.5-4.9)
[2022-10-20] MEDS: CEFEPIME 2 GM in IV D5W 100 ML IV SCH ×2 (08:13→21:38)
[2022-10-20] MEDS: PANTOPRAZOLE 40 MG TABLET.DR PO SCH (08:13)
[2022-10-20] MEDS: methylPREDNISolone SOD SUCC 40 MG/ML VIAL IV SCH ×2 (08:13→21:38)
[2022-10-20] MEDS: OLANZAPINE ZYDIS 5 MG TAB.RAPDIS PO SCH ×2 (08:14→17:26)
[2022-10-20] MEDS: ASPIRIN 81 MG TAB.CHEW PO SCH (08:14)
[2022-10-20] MEDS: BLOOD SUGAR DIAGNOSTIC 1 EACH STRIP IN SCH ×4 (08:27→22:04)
[2022-10-20] MEDS: INSULIN REGULAR, HUMAN 100 UNIT/ML 3 ML VIAL SQ PRN (08:29)
[2022-10-20] MEDS: CARVEDILOL 3.125 MG TABLET PO SCH ×2 (08:38→21:38)
[2022-10-20] MEDS: FUROSEMIDE 40 MG TABLET PO SCH ×2 (08:39→17:26)
[2022-10-20] MEDS ORDERED: SPIRONOLACTONE 25 MG TABLET PO SCH (09:00)
[2022-10-20] MEDS ORDERED: BUPROPION XL 150 MG TAB.ER.24 PO SCH (09:00)
[2022-10-20] MEDS ORDERED: FLUOXETINE HCL 20 MG CAPSULE PO SCH (09:00)
--- NOTE | 2022-10-20 11:21 | NUR ---
Updated [facility] Sound Person RE: Pt current Condition. Will call back once bed at [facility] is available.
[2022-10-20] MEDS ORDERED: K PHOS NEUTRAL 250 MG TABLET PO ONE (12:00)
[2022-10-20] MEDS: DIGOXIN 0.25 MG TABLET PO SCH (12:09)
[2022-10-20] MEDS ORDERED: acetaZOLAMIDE SODIUM 500 MG/VIAL VIAL IV ONE (14:00)
[2022-10-20] MEDS: WARFARIN SODIUM 5 MG TABLET PO SCH (17:27)
--- NOTE | 2022-10-20 18:05 | NUR ---
RN NOTE PATIENT TRANSFERRED FROM ICU ROOM 258-1 IN HIS ACCOMPANIED AND GIVEN REPORT BY LINDA BURNS. VITALS TAKEN: BP: 100/56, RR: 22, HR 103, ORAL TEMP; 98.9 F, BREATHING ON 2L ON NASAL CANULA AT 90% 02 SAT. TELE MONITOR READING A.FIB, DENIES ANY PAIN AT THIS TIME. PATIENT IS A0X3 WITH PERIODS OF CONFUSION. URINAL AT BEDSIDE. IV ACCESS LW #22G, FLUSH AND PATENT. BELONGINGS ACCOUNTED FOR. ALL SAFETY MEASURES IN PLACE; BED LOCKED IN LOWEST POSITION, CALL LIGHT WITHIN REACH. WILL ENDORSE CONTINUITY OF CARE TO LAWYER REAL ESTATE.
--- NOTE | 2022-10-20 19:30 | NUR ---
RN NOTE Patient in bed, on semi bruno's, AO x 2-3, in no acute distress, saturation at 92% on 2L via NC, afib on the monitor, HR is 94. IV line at R hand 22g leaking, inserted another IV line at R wrist 22g, saline locked. Safety measures in place, bed is locked and at lowest position, call light within reach of patient. Will cont to monitor and reassess for any changes.
--- NOTE | 2022-10-20 22:45 | NUR ---
RN NOTE REPORT GIVEN TO KAT MCKEON OF [facility], PT WILL BE ADMITTED TO ROOM 5301B UNDER DR RAMIREZ. ETA [id number]
[2022-10-21] VITALS: BP 101/65
--- NOTE | 2022-10-21 00:50 | NUR ---
RN NOTE PATIENT TRANSFERRED TO [facility] VIA ACLS PROTOCOL ACCOMPANIED BY KAY MCKEON AND 2 EMT'S, IN STABLE CONDITION. ALL BELONGINGS SENT WITH PATIENT.
== END 2022-10-21 02:02 | disposition short-term general hospital (02) | DRG 280 ==
LOC: ER 17:21 → ICU 22:16 → TELE-TD 10-16 17:31 → TELE1 10-17 09:37 → ICU 10-17 14:44 → TELE-TD 10-20 17:43
PROVIDERS: ADMIT Nurse Practitioner Acute Care; ATTEND Internal Medicine
PROC: 5A09557 Assistance with Respiratory Ventilation, Greater than 96 Consecutive Hours, Continuous Positive Airway Pressure (ICD-10-PCS; principal; 2022-10-14)
DX: I11.0 Hypertensive heart disease with heart failure (principal); I21.A1 Myocardial infarction type 2; I50.43 Acute on chronic combined systolic (congestive) and diastolic (congestive) heart failure; J96.22 Acute and chronic respiratory failure with hypercapnia; J44.1 Chronic obstructive pulmonary disease with (acute) exacerbation; E87.3 Alkalosis; Z20.822 Contact with and (suspected) exposure to COVID-19; Z99.81 Dependence on supplemental oxygen; E11.9 Type 2 diabetes mellitus without complications; Z79.4 Long term (current) use of insulin; Z79.82 Long term (current) use of aspirin; Z79.899 Other long term (current) drug therapy; R79.89 Other specified abnormal findings of blood chemistry; I48.91 Unspecified atrial fibrillation; T50.1X5A Adverse effect of loop [high-ceiling] diuretics, initial encounter; Y92.9 Unspecified place or not applicable; F29 Unspecified psychosis not due to a substance or known physiological condition; Z79.01 Long term (current) use of anticoagulants; Z87.891 Personal history of nicotine dependence
CPT/HCPCS: 36415; 36600; 71045-TC; 80048-TC; 80053-TC; 80061-TC; 80076-TC; 81001; 82803-TC; 82962-TC; 83540-TC; 83735-TC; 83880; 84100-TC; 84443-TC; 84484-TC; 85025-TC; 85610-TC; 85730-TC; 87081-TC; 87086-TC; 93307-TC; 94660; 94760-TC; 94799-TC; 97112-TC; 97116-TC; 97530-TC; C9113; C9803; G0378; J0692; J1120; J1160; J1815; J1940; J2185; J2920; J2930; J3475; J7050; J7060